=== PATIENT | female | born 1955 | race Caucasian/White ===

== ENCOUNTER 2023-10-21 10:00 | Outpatient (RCR) | payer MEDICARE, OTHER, SELFPAY | END 2023-10-21 23:59 | disposition home or self-care (01) | LOC: ROT 10:00 | PROVIDERS: ATTENDING PHYSICIAN Physical Medicine & Rehabilitation; FAMILY PHYSICIAN Family Medicine | DX: G06.1 Intraspinal abscess and granuloma (principal); R29.898 Other symptoms and signs involving the musculoskeletal system | CPT/HCPCS: 97010; 97110; 97112; 97116; 97530; 97535 ==

== ENCOUNTER → 2023-10-22 10:46 | Outpatient (REF) | payer MEDICARE, OTHER, SELFPAY ==
[2023-10-22 11:20] LABS: % Basophils 0.7 % (0-2); % Eosinophils 2.9 % (0-6); % Immature Granulocytes 0.3 % (0-0.5); % Lymphocytes 19.3 % (20.5-51.1); % Monocytes 9.7 % (1.7-9.3); % Neutrophils 67.1 % (42.2-75.2); Absolute Basophils 0.1 10^3/uL (0-0.2); Absolute Eosinophils 0.2 10^3/uL (0-0.7); Absolute Lymphocytes 1.3 10^3/uL (1.2-3.4); Absolute Monocytes 0.7 10^3/uL (0.1-0.6); Absolute Neutrophils 4.6 10^3/uL (1.4-6.5); Hematocrit 36.7 % (37.0-47.0); Hemoglobin 11.9 g/dL (12.0-16.0); Mean Corp Hgb Conc. 32.4 g/dL (33.0-37.0); Mean Corpuscular Hgb 29.1 pg (27.0-31.0); Mean Corpuscular Volume 89.7 fL (81.0-99.0); Mean Platelet Volume 9.6 fL (7.4-10.4); Nucleated Red Blood Cells % 0 %; Platelet Count 199 10^3/uL (130-400); Red Blood Cell Count 4.09 10^6/uL (4.20-5.40); White Blood Cell Count 6.8 10^3/uL (4.8-10.8)
[2023-10-22 11:46] LABS: ALT (SGPT) 35 U/L (0-35); AST (SGOT) 52 U/L (14-36); Albumin 3.7 g/dl (3.5-5.0); Alkaline Phosphatase 200 U/L (38-126); Blood Urea Nitrogen 14 mg/dl (7-17); Calcium 9.7 mg/dl (8.4-10.2); Carbon Dioxide 25 mmol/L (22-30); Chloride 103 mmol/L (98-107); Direct Bilirubin 0.7 mg/dl (0.0-0.4); Glucose 135 mg/dl (70-99); HDL Cholesterol 34 mg/dl; LDL Cholesterol, Calculated 74 mg/dl; Potassium 4.9 mmol/L (3.5-5.1); Sodium 136 mmol/L (135-145); Total Bilirubin 0.8 mg/dl (0.2-1.3); Total Cholesterol 135 mg/dl (50-199); Triglyceride 137 mg/dl (10-149); Very Low Density Lipoprotein 27 mg/dl (0-30); eGFR > 60.00
[2023-10-22 12:04] LABS: Free T3 2.79 pg/ml (2.77-5.27); Free T4 0.89 ng/dl (0.78-2.19)
[2023-10-22 12:13] LABS: Glycohemoglobin (HgbA1c) 6.3 % (4.0-5.6)
[2023-10-22 12:18] LABS: TSH 2.01 uIU/ml (0.47-4.68)
[2023-10-24 02:08] LABS: Apolipoprotein B 76 mg/dL (60-117)
== END ==
LOC: REG 10:46
PROVIDERS: ATTENDING PHYSICIAN Family Medicine; REFERRING PHYSICIAN Dermatology Dermatopathology
DX: E11.9 Type 2 diabetes mellitus without complications (principal); E03.9 Hypothyroidism, unspecified; E78.2 Mixed hyperlipidemia
CPT/HCPCS: 36415; 80048; 80061; 80076; 82172; 83036; 84439; 84443; 84481; 85025

== ENCOUNTER → 2023-10-30 07:54 | Outpatient (REF) | payer MEDICARE, OTHER, SELFPAY | LOC: DHCBC/DCA 07:54 | PROVIDERS: ATTENDING PHYSICIAN Internal Medicine Cardiovascular Disease; FAMILY PHYSICIAN Family Medicine | DX: I42.9 Cardiomyopathy, unspecified (principal); E11.69 Type 2 diabetes mellitus with other specified complication; R94.31 Abnormal electrocardiogram [ECG] [EKG] | CPT/HCPCS: 78452; 93017; A9500; J2785 ==

== ENCOUNTER → 2023-11-27 12:43 | Outpatient (REF) | payer MEDICARE, OTHER, SELFPAY ==
[2023-11-27 12:55] VITALS: BP 140/98; BP_SYST 89
[2023-11-27 14:14] LABS: Body Fluid Mononuclear 54.2 %; Body Fluid Polymorphonuclear 45.8 %; Body Fluid WBC 24 /CUMM
[2023-11-27 14:16] LABS: Body Fluid Second Tech AMA
[2023-11-27 14:43] LABS: Erythrocyte Sed Rate 93 mm/hour (0-20)
== END ==
LOC: RADI 12:43
PROVIDERS: ATTENDING PHYSICIAN Physician Assistant Surgical; FAMILY PHYSICIAN Internal Medicine; OTHER PHYSICIAN Internal Medicine Infectious Disease; OTHER PHYSICIAN Orthopaedic Surgery
DX: M25.552 Pain in left hip (principal); Z96.642 Presence of left artificial hip joint
CPT/HCPCS: 20610; 36415; 76942; 77002; 85652; 86140; 87015; 87070; 87205; 89051

== ENCOUNTER → 2023-12-11 13:27 | Outpatient (REF) | payer MEDICARE, OTHER, SELFPAY ==
[2023-12-11 13:55] VITALS: BP 134/80; BP_SYST 90
[2023-12-11 15:05] VITALS: BP 103/81
== END ==
LOC: RADI 13:27
PROVIDERS: ATTENDING PHYSICIAN Physician Assistant Surgical; FAMILY PHYSICIAN Internal Medicine
DX: M00.052 Staphylococcal arthritis, left hip (principal); B95.61 Methicillin susceptible Staphylococcus aureus infection as the cause of diseases classified elsewhere; M25.552 Pain in left hip
CPT/HCPCS: 10160; 76942; 87015; 87070; 87147; 87186; 87205

== ENCOUNTER → 2023-12-17 07:55 | Outpatient (REF) | payer MEDICARE, OTHER, SELFPAY | LOC: MRI 07:55 | PROVIDERS: ATTENDING PHYSICIAN Student in an Organized Health Care Education/Training Program; FAMILY PHYSICIAN Internal Medicine; REFERRING PHYSICIAN Orthopaedic Surgery | DX: M86.552 Other chronic hematogenous osteomyelitis, left femur (principal) | CPT/HCPCS: 72197; A9575 ==

== ENCOUNTER → 2023-12-18 12:14 | Outpatient (REF) | payer MEDICARE, OTHER, SELFPAY ==
[2023-12-18 12:41] VITALS: BP 126/91
[2023-12-18 13:45] VITALS: BP 113/85; BP_SYST 80
== END ==
LOC: RADI 12:14
PROVIDERS: ATTENDING PHYSICIAN Orthopaedic Surgery; FAMILY PHYSICIAN Family Medicine
DX: B99.9 Unspecified infectious disease (principal); M16.12 Unilateral primary osteoarthritis, left hip; Z96.642 Presence of left artificial hip joint
CPT/HCPCS: 88305; 10160; 36415; 76942; 80048; 83036; 85025; 85652; 85730; 86140; 86850; 86900; 86901; 87015; 87070; 87147; 87186; 87205; 88112

== ENCOUNTER → 2023-12-18 12:46 | Outpatient (REF) | payer MEDICARE, OTHER, SELFPAY ==
[2023-12-18 14:51] LABS: % Basophils 0.3 % (0-2); % Eosinophils 1.1 % (0-6); % Immature Granulocytes 0.3 % (0-0.5); % Lymphocytes 14.8 % (20.5-51.1); % Monocytes 5.1 % (1.7-9.3); % Neutrophils 78.4 % (42.2-75.2); Absolute Eosinophils 0.1 10^3/uL (0-0.7); Absolute Lymphocytes 1.3 10^3/uL (1.2-3.4); Absolute Monocytes 0.5 10^3/uL (0.1-0.6); Absolute Neutrophils 6.9 10^3/uL (1.4-6.5); Hematocrit 37.7 % (37.0-47.0); Mean Corp Hgb Conc. 31.8 g/dL (33.0-37.0); Mean Corpuscular Hgb 28.1 pg (27.0-31.0); Mean Corpuscular Volume 88.3 fL (81.0-99.0); Mean Platelet Volume 9.5 fL (7.4-10.4); Nucleated Red Blood Cells % 0 %; Platelet Count 209 10^3/uL (130-400); Red Blood Cell Count 4.27 10^6/uL (4.20-5.40); Red Cell Dist. Width 15.8 % (11.5-14.5); White Blood Cell Count 8.9 10^3/uL (4.8-10.8)
[2023-12-18 15:01] LABS: APTT 35.3 Sec (23.4-35.0)
[2023-12-18 15:05] LABS: Blood Urea Nitrogen 21 mg/dl (7-17); Calcium 10.2 mg/dl (8.4-10.2); Carbon Dioxide 24 mmol/L (22-30); Chloride 104 mmol/L (98-107); Glucose 117 mg/dl (70-99); Potassium 4.8 mmol/L (3.5-5.1); Sodium 137 mmol/L (135-145); eGFR > 60.00
[2023-12-18 23:11] LABS: Erythrocyte Sed Rate 104 mm/hour (0-20)
[2023-12-19 12:49] LABS: Glycohemoglobin (HgbA1c) 6.1 % (4.0-5.6)
== END ==
LOC: REG 12:46
PROVIDERS: ATTENDING PHYSICIAN Orthopaedic Surgery; FAMILY PHYSICIAN Family Medicine; REFERRING PHYSICIAN Student in an Organized Health Care Education/Training Program
DX: M16.12 Unilateral primary osteoarthritis, left hip (principal); Z96.642 Presence of left artificial hip joint; G06.2 Extradural and subdural abscess, unspecified; E11.69 Type 2 diabetes mellitus with other specified complication; A41.9 Sepsis, unspecified organism
CPT/HCPCS: 10160; 36415; 76942; 80048; 83036; 85025; 85652; 85730; 86140; 86850; 86900; 86901; 87015; 87070; 87205

== ENCOUNTER 2023-12-23 06:28 | Inpatient (IN) | payer MEDICARE, OTHER, SELFPAY ==
--- NOTE | 2023-12-18 11:56 | CM ---
Patient is scheduled for an elective L EFRAIN revision on 12/23/23. Spoke with patient prior to surgery via telephone. Introduced role of Orthopedic Navigator. Patient reports that she lives with her in a three story home. There is one step to
enter and a circular flight of steps to the second floor. There is a powder room on the data entry specialist. She currently functions independently. She has DME from having L EFRAIN done at [facility]. She has had VN services in past after back
surgeries. She had a PICC line and home IV antibiotics in past. She reports her was trained to give her the antibiotics in PICC line. PCP is Dr. Villanueva.
Patient has raised toilet seat with rails, rolling walker and 2 canes. She will see if she still has shower seat and will order new hip kit.
Discussed orthopedic program and post surgical plans. Reviewed anticipated length of stay and that goal is for her to return home at discharge. At this time patient is not sure she will have surgery but expects to be NWB and may have to stay on
data entry specialist.
She may need to have home care services. She will have support from her when she goes home.
Patient will complete online education.
Plan: Orthopedic Navigator will remain available to assist with the care of patient and will reassess discharge needs after surgery.
[2023-12-23] VITALS (12 sets, daily range): BP systolic 80–127; BP diastolic 56–80
[2023-12-23 08:57] LABS: Glucose - Point of Care 132 mg/dl (70-99)
[2023-12-23] MEDS: CELEBREX 200 MG PO (09:12)
[2023-12-23] MEDS: NORMOSOL-R 1000 IV ×2 (09:12→13:56)
[2023-12-23] MEDS: TYLENOL 650 MG PO ×2 (09:12→17:17)
[2023-12-23 09:14] LABS: INR 1.27; PT 15.9 Sec (11.4-14.6)
[2023-12-23] MEDS: VANCOCIN 200 IV (09:34)
--- NOTE | 2023-12-23 11:04 | HPS.HSE ---
Family Physician
-
Family Physician: INTERVIEWE UNKNOWN - PT NOT
Chief Complaint
-
For L hip EFRAIN revision
History of Present Illness
HPI: 67-year-old female with PMH of systolic Heart failure (EF 45%), Liver cirrhosis on imaging, Essential hypertension, Type 2 diabetes mellitus, recent septic shock with MSSA bacteremia and extensive epidural abscess involving
cervical/thoracic/lumbar spine with DKA and iatrogenic pulmonary edema from last admission 07/2023 and pt transferred to [facility] and underwent debridement with foraminotomies in cervical/thoracic spine and laminectomy in thoracic and
lumbar spine and had been on IV cefazolin through 09/18/2023; returned to for revision of L EFRAIN by Dr Hickman due to outpt hip aspiration noted positive for MSSA.
Medical History
Past Medical History
Past Medical History: Reports Other
Additional Past Medical History:
Hypothyroidism
Type 2 diabetes
Hypertension
Hyperlipidemia
Osteoarthritis
Left humerus fracture status post surgery
Obesity
recent septic shock with MSSA bacteremia and extensive epidural abscess involving cervical/thoracic/lumbar spine with DKA and iatrogenic pulmonary edema from last admission 07/2023
debridement with foraminotomies in cervical/thoracic spine and laminectomy in thoracic and lumbar spine and had been on IV cefazolin through 09/18/2023
Past Surgical History: Reports Other
Additional Past Surgical History:
Left knee replacement
Left humerus fracture surgery
debridement with foraminotomies in cervical/thoracic spine and laminectomy in thoracic and lumbar spine and had been on IV cefazolin through 09/18/2023
Social History
Tobacco: Non-smoker
Alcohol: Occasional
Drug: None
Personal:
Living: With Family
Family History
Family History: Not pertinent
Allergies / Home Medications
Allergies reflects when Allergies were last updated in [employer].
Home Medications with original date entered in [employer]
Allergy/Medication List:
Allergies
Allergy/AdvReac Type Severity Reaction Status Date / Time
No Known Allergies Allergy Unverified 12/01/12 09:20
Home Medications Table - record
Medication Instructions Recorded Confirmed
acetaminophen 325 mg tablet 325 mg PO DAILYPRN PRN mild pain 07/14/23 07/14/23
(Tylenol)
bisacodyl 5 mg tablet,delayed 5 mg PO DAILYPRN PRN constipation 07/14/23 07/14/23
release (Dulcolax (bisacodyl))
carvedilol 12.5 mg tablet 12.5 mg PO BID Heart 07/14/23 07/14/23
Disease/Condition
ibuprofen 200 mg tablet 200 mg PO Q6HPRN PRN mild pain 07/14/23 07/14/23
levothyroxine 25 mcg tablet 25 mcg PO DAILY Thyroid 07/14/23 07/14/23
meloxicam 15 mg tablet 15 mg PO DAILYPRN PRN moderate pain 07/14/23 07/14/23
methylprednisolone 4 mg tablets in 0 mg PO PER PKG DIR 07/14/23 07/14/23
a dose pack (Medrol (Abilio)) antiinflammation
ramipril 10 mg capsule 10 mg PO DAILY Blood Pressure 07/14/23 07/14/23
rosuvastatin 10 mg tablet 10 mg PO DAILY High Cholesterol 07/14/23 07/14/23
therapeutic multivitamin 1 tab PO DAILY Supplement 07/14/23 07/14/23
tramadol 50 mg tablet 50 mg PO Q6HPRN PRN moderate pain 07/14/23 07/14/23
Review of Systems
-
Constitutional: Reports No Symptoms
Physical Exam
Vital Signs
Vital Signs
Temp Pulse Resp BP Pulse Ox
36.5 C 76 16 127/79 100
12/23/23 08:56 12/23/23 08:56 12/23/23 08:56 12/23/23 08:56 12/23/23 08:56
Physical Exam
General: Well Developed, Well Nourished, No Apparent Distress, Comfortable and Conversant
HEENT: NormoCephalic, Moist mucous membranes and Atraumatic
Respiratory: Clear and Non Labored Respirations; No Accessory Resp Muscle Use
Cardiac: S1/S2 and Regular Rhythm; No Murmur or Rub
GI: Soft, Non Tender, Non Distended and Normal Bowel Sounds; No Organomegaly
Rectal: Deferred by Provider
Musculoskeletal: No Clubbing, No Cyanosis and No Edema
Skin: No Rash
Neuro: Awake
Psych: Calm and Intact Judgment/Insight
Laboratory Results
-
Laboratory Results
PT 15.9 Sec (11.4-14.6) H 12/23/23 08:52
INR 1.27 12/23/23 08:52
Data Reviewed
-
Lab Data: Labs Reviewed by me
Impression/Plan
-
HPI: 67-year-old female with PMH of systolic Heart failure (EF 45%), Liver cirrhosis on imaging, Essential hypertension, Type 2 diabetes mellitus, recent septic shock with MSSA bacteremia and extensive epidural abscess involving
cervical/thoracic/lumbar spine with DKA and iatrogenic pulmonary edema from last admission 07/2023 and pt transferred to [facility] and underwent debridement with foraminotomies in cervical/thoracic spine and laminectomy in thoracic and
lumbar spine and had been on IV cefazolin through 09/18/2023; returned to for revision of L EFRAIN by Dr Hickman due to outpt hip aspiration noted positive for MSSA.
A/P:
# L hip aspiration with MSSA, admit for revision of Left EFRAIN by Dr Hickman.
medically optimized for low/moderate risk procedure
ID CS for Abx plan
Post op care per ortho
# Recent admission for Septic shock with MSSA bacteremia with epidural abscesses of the lumbar, thoracic, cervical spine
# s/p debridement, foraminotomies in cervical/thoracic spine, and laminectomy in thoracic and lumbar spine
Pt had been on IV cefazolin through 09/18
ID CS as above
# Chronic HFrEF EF 45% (although pt declined history of CHF)
Cont [employer] aspirin, Toprol
# Type 2 diabetes
ISS
# Recent Left superficial venous thrombosis
Can check repeat US this admission
# Recent Transaminitis
# Liver cirrhosis
Check LFT
# Hypothyroidism
cont [employer] Synthroid
DVT prophylaxis�Lovenox SQ
Full code
DW at bedside
DW ortho team
DW ID
total time spent 75 min
--- NOTE | 2023-12-23 11:21 | PTCARENOTE ---
Took over for Nat KATZ. Checked on patient several times. Brought her warm blankets, offered bathroom and patient refused. Then patient rang and said she had to urinate. Patient requested bedpan. Patient seems upset while waiting to go to the OR. Or
team in shortly after patient tried to void on the bedpan. Will monitor patient.
--- NOTE | 2023-12-23 13:09 | W.PN.UPDATE ---
Update Note
Progress Note Update
Infection of L TH prosthesis s/p Revision of L EFRAIN w/ Dr Hickman 12/23/23
- s/p L EFRAIN, 05/2022, by Dr Hickman
- L greater trochanter/hip aspiration 12/18/23 + MSSA. Has a previous h/o MSSA bacteremia in 06/2023 2* multiple epidural abscesses. Completed IV Cefazolin 08/2023 per ID recs
- Will consult ID for further abx recs. Likely to be on 6 weeks of IV abx followed by 9 months of PO abx. Was started on Keflex and Doxycycline pre-op.
- Per surgeon, pt will be PWB as tolerated w/ rolling walker. Orders in for PT and OT.
- Would prefer ASA 325 mg PO daily x4 weeks for DVT prevention. Can be changed if needed pending result of UE U/S
- Pain management w/ Tylenol, Meloxicam, and Oxycodone for mod-severe post-op pain. May adjust meds if indicated. Prefer no steroids d/t current infection.
- Dressing to remain on for 1 week post-surgery.
- Will transfer to the hospitalist service d/t complicated medical hx (previous pulmonary edema, septic shock, bacteremia, and DKA admission in 06/2023). Appreciate their help.
- Orthopedic f/u typically 4-6 weeks post-surgery
[2023-12-23 13:35] LABS: Glucose - Point of Care 146 mg/dl (70-99)
[2023-12-23] MEDS: SUBLIMAZE 25 MCG IV ×2 (13:59→14:22)
--- NOTE | 2023-12-23 14:10 | SUR.PHASEI ---
BP trending down, Dr Vickie gibbons. Amira Yeung RN BSN.
[2023-12-23] MEDS: ROXICODONE 5 MG PO (14:25)
--- NOTE | 2023-12-23 14:38 | CON.ID ---
Consultation
-
Date/Time Consultation Requested: 12/23/23 13:18
Date/Time Consultation Performed: 12/23/23 15:33
Requesting Provider: Dr Hickman
Performing Provider: Dr Miller
Reason for Consultation: PJI
Chief Complaint / Past History
Chief Complaint
For L hip EFRAIN revision
History of Present Illness
Ms Myers is a 68 year old female with history of compensated cirrhosis, prolonged MSSA bacteremia due to Extensive Epidural Abscesses of the lumbar, thoracic and cervical spine ultimately undergoing debridement with foraminotomies in
cervical/thoracic spine and laminectomy in thoracic and lumbar spine at [facility] in 06/2024, she completed a course of IV cefazolin and did well until around September when she developed a nagging groin pain and was found to have an infected hematoma
adjacent to her L PJI. She has not had fevers, chills or malaise at home. She underwent a second joint aspiration and aspiration of the L hip collection last week. The lab reports only receiving fluid marked bursal collection - they did not
receive a smaple marked as being from the hip. The bursal collection grew MSSA. She was started on doxycycline and keflex by me. She was admitted today for elective 1 stage replacement. I normaer texted with Dr Hickman who noted puss was in the
joint space. Vanc and 12 grams of tobramycin were mixed into the bone cement. ID is consulted for assistance with management.
Past History
Additional Past Medical History:
Hypothyroidism
Type 2 diabetes
Hypertension
Hyperlipidemia
Osteoarthritis
Left humerus fracture status post surgery
Obesity
recent septic shock with MSSA bacteremia and extensive epidural abscess involving cervical/thoracic/lumbar spine with DKA and iatrogenic pulmonary edema from last admission 07/2023
debridement with foraminotomies in cervical/thoracic spine and laminectomy in thoracic and lumbar spine and had been on IV cefazolin through 09/18/2023
Additional Past Surgical History:
Left knee replacement
Left humerus fracture surgery
debridement with foraminotomies in cervical/thoracic spine and laminectomy in thoracic and lumbar spine and had been on IV cefazolin through 09/18/2023
Allergy History:
No Known Allergies Allergy (Verified 12/23/23 08:46)
Social History
Tobacco: Non-Smoker
Alcohol: Occasional (fomer daily use)
Drug: None
Family History
Family History: Not Pertinent
Review of Systems
Review of Systems
General: Negative Fever or Chills
All systems: All other systems were reviewed and were negative
Vital Signs
Temp Pulse Resp BP Pulse Ox
98.1 F 76 0 86/61 98
12/23/23 13:20 12/23/23 14:15 12/23/23 14:15 12/23/23 14:15 12/23/23 14:15
Physical Exam
Physical Exam
Constitutional: No Acute Distress
Cardiovascular: Regular Rate and S1/S2; Negative Murmur or Rub
Pulmonary: Clear and Symmetric; Negative Wheezes, Rales or Rhonchi
Gastrointestinal: Soft, Non Tender, Non Distended and Normal Bowel Sounds
Skin: Warm and Dry; Negative Rash or Jaundice
Wound: Other (dressing clean, dry, intact)
Lab / Diagnostic Study Results
PT 15.9 Sec (11.4-14.6) H 12/23/23 08:52
INR 1.27 12/23/23 08:52
Microbiology Results
Micro:
12/23/23 13:22 Tissue Culture - Pending
Tissue Gram Stain - Pending
12/23/23 13:22 Tissue Culture - Pending
Tissue Gram Stain - Pending
12/23/23 13:22 Tissue Culture - Pending
Tissue Gram Stain - Pending
Assessment / Plan
MSSA PJI and Abscess
- will follow up formal OR note
- continue cefazolin 2 gm IV q8 hrs
- picc line can be consider about 24 hours post op if not febrile
- tobramycin and vancomycin levels in the AM
- is on post operative fluids currently at 70 ccs/hr, follow renal function closely, may well consider recommending to continue tomorrow
- avoid nsaids for at least the next 72 hours - stopped mobic
- follow renal function closely
Cirrhosis - compensated
- outpatient follow up with GI
- abstinence from EtoH
Care Review
Plan reviewed with: Physician (Dr Hickman, Dr Adams - risk of parker)
--- NOTE | 2023-12-23 15:17 | PTCARENOTE ---
Pt arrived to [facility] from PACU s/p L Hip revision. Pt L hip aquacel C/D/I, NV intact, on 2L NC satting 100%, IVF infusing. Pt states 7/10 pain, was given 5mg Roxicodone before arriving. Will assess pain in 1 hour. Pt states no other pain or
complaints at this time. Pt oriented to call quiroz and room, bed locked and in lowest position, call quiroz within reach.
[2023-12-23 16:57] LABS: Glucose - Point of Care 198 mg/dl (70-99)
[2023-12-23] MEDS: PROZAC 10 MG PO (17:17)
[2023-12-23] MEDS: ANCEF 10 IV ×2 (17:17→23:05)
[2023-12-23] MEDS: ASPIRIN 325 MG PO (17:17)
[2023-12-23] MEDS: SYNTHROID PO (17:19)
[2023-12-23] MEDS: ROXICODONE 10 MG PO ×2 (17:27→21:37)
[2023-12-23] MEDS: NOVOLOG FLEXPEN-LOW RESISTANCE 1 UNITS SC (17:46)
[2023-12-23] MEDS: COLACE 100 MG PO (20:51)
[2023-12-23] MEDS: SENOKOT 17.1999999999999993 MG PO (20:51)
[2023-12-23] MEDS: BACTROBAN 2% OINTMENT 1 APPLIC NASAL (20:52)
--- NOTE | 2023-12-23 21:00 | PTCARENOTE ---
pt's left foot noted to be internally rotated, provided pt with abductor pillow and pt educated on need for use for proper alignment of hip. Pt verbalized understanding, though, was not happy to have abductor pillow in place. Assessment ongoing.
[2023-12-23 21:29] LABS: Glucose - Point of Care 205 mg/dl (70-99)
[2023-12-23] MEDS: CRESTOR 10 MG PO (21:37)
[2023-12-24] VITALS (7 sets, daily range): BP systolic 95–137; BP diastolic 68–84; PULSE 61–89; O2SAT 100
[2023-12-24] MEDS: ROXICODONE 10 MG PO ×2 (02:29→21:06)
[2023-12-24] MEDS: TYLENOL 650 MG PO (02:29)
[2023-12-24 06:37] LABS: % Basophils 0.2 % (0-2); % Eosinophils 0.3 % (0-6); % Immature Granulocytes 0.3 % (0-0.5); % Lymphocytes 16.3 % (20.5-51.1); % Monocytes 8.8 % (1.7-9.3); % Neutrophils 74.1 % (42.2-75.2); Absolute Lymphocytes 1.4 10^3/uL (1.2-3.4); Absolute Monocytes 0.8 10^3/uL (0.1-0.6); Absolute Neutrophils 6.4 10^3/uL (1.4-6.5); Hematocrit 26.7 % (37.0-47.0); Hemoglobin 8.6 g/dL (12.0-16.0); Mean Corp Hgb Conc. 32.2 g/dL (33.0-37.0); Mean Corpuscular Hgb 27.9 pg (27.0-31.0); Mean Corpuscular Volume 86.7 fL (81.0-99.0); Mean Platelet Volume 9.7 fL (7.4-10.4); Nucleated Red Blood Cells % 0 %; Platelet Count 145 10^3/uL (130-400); Red Blood Cell Count 3.08 10^6/uL (4.20-5.40); Red Cell Dist. Width 15.9 % (11.5-14.5); White Blood Cell Count 8.6 10^3/uL (4.8-10.8)
[2023-12-24 07:12] LABS: ALT (SGPT) 24 U/L (0-35); AST (SGOT) 41 U/L (14-36); Albumin 3.1 g/dl (3.5-5.0); Alkaline Phosphatase 114 U/L (38-126); Blood Urea Nitrogen 23 mg/dl (7-17); Carbon Dioxide 24 mmol/L (22-30); Chloride 103 mmol/L (98-107); Direct Bilirubin 0.3 mg/dl (0.0-0.4); Estimated Creatinine Clearance 52 ml/min; Glucose 123 mg/dl (70-99); Potassium 4.7 mmol/L (3.5-5.1); Sodium 136 mmol/L (135-145); Total Bilirubin 0.3 mg/dl (0.2-1.3); Total Protein 7.2 g/dl (6.3-8.2); eGFR > 60.00
[2023-12-24 08:05] LABS: Glucose - Point of Care 97 mg/dl (70-99)
--- NOTE | 2023-12-24 08:15 | W.PN.ORTHO ---
Today's Communication / Plan
-
PT/OT
Aspirin DVT prophylactics
Partial weightbearing left lower extremity
DC abductor pillow
Ancef/vancomycin
ID recommendations for antibiotics
Discharge to home or longterm facility
Follow-up Dr. Hickman 2 weeks postop
Assessment
.
Distal Motor Intact: Yes
Dressing:
Clean, dry and intact.
Plan
.
Surgery / Date: Explant/single-stage revision L EFRAIN 12/22 Vick
DVT Prophylaxis: Aspirin
Activity:
Out of bed.
PT/OT
Subjective
.
.:
Patient resting comfortably.
Vital Signs and Labs
.
Vital Signs and Labs:
Lab Results
12/24/23 05:36
12/24/23 05:36
Temp Pulse Resp BP Pulse Ox
98.5 F 78 19 97/68 99
12/24/23 07:59 12/24/23 07:59 12/24/23 07:59 12/24/23 07:59 12/24/23 07:59
PT 15.9 Sec (11.4-14.6) H 12/23/23 08:52
INR 1.27 12/23/23 08:52
[2023-12-24] MEDS: NOVOLOG FLEXPEN-LOW RESISTANCE SC ×3 (08:38→16:52)
[2023-12-24] MEDS: BACTROBAN 2% OINTMENT 1 APPLIC NASAL ×2 (08:48→21:00)
[2023-12-24] MEDS: PROZAC 10 MG PO (08:48)
[2023-12-24] MEDS: TOPROL XL PO ×2 (08:48→09:40)
[2023-12-24] MEDS: ASPIRIN 325 MG PO (08:48)
[2023-12-24] MEDS: ROXICODONE 5 MG PO ×2 (08:48→15:26)
[2023-12-24] MEDS: ANCEF 10 IV ×3 (08:48→23:08)
[2023-12-24] MEDS: COLACE 100 MG PO ×2 (08:48→21:01)
[2023-12-24] MEDS: SYNTHROID 25 MCG PO (08:48)
[2023-12-24] MEDS: SENOKOT 17.1999999999999993 MG PO ×2 (08:48→21:01)
--- NOTE | 2023-12-24 09:03 | W.PN.HOSP.TC ---
Today's Communication/Plan
-
see A/P
Assessment / Plan
Assessment / Plan
HPI: 67-year-old female with PMH of systolic Heart failure (EF 45%), Liver cirrhosis on imaging, Essential hypertension, Type 2 diabetes mellitus, recent septic shock with MSSA bacteremia and extensive epidural abscess involving
cervical/thoracic/lumbar spine with DKA and iatrogenic pulmonary edema from last admission 07/2023 and pt transferred to [facility] and underwent debridement with foraminotomies in cervical/thoracic spine and laminectomy in thoracic and
lumbar spine and had been on IV cefazolin through 09/18/2023; returned to for revision of L EFRAIN by Dr Hickman due to outpt hip aspiration 12/18/2023 noted positive for MSSA.
A/P:
# L hip bursa aspiration with MSSA
s/p revision of Left EFRAIN by Dr Hickman 12/23/2023
Aspirin for DVT prophylaxis per ortho
Per ortho, Ok for partial weightbearing left lower extremity, Follow-up Dr. Hickman 2 weeks postop
Follow tissue culture from OR
s/p vancomycin, cont Ancef per ID, to consider PICC placement in 24 hours post op if not febrile
PT OT eval for discharge planning, likely to SNF
pt is leaning toward [facility] on board to facilitate
# Acute blood loss/ post of anemia
Hgb today at 8.6, was at 12.0 [employer]
Cont to monitor Hgb
# Recent admission 07/2023 for Septic shock with MSSA bacteremia, with epidural abscesses of the lumbar, thoracic, cervical spine
# s/p debridement, foraminotomies in cervical/thoracic spine, and laminectomy in thoracic and lumbar spine
Pt had been on IV cefazolin at that time through 09/18
# Chronic HFrEF EF 45% (although pt declined history of CHF)
Cont [employer] aspirin, Toprol (with holding parameter)
# Type 2 diabetes
ISS
# Recent Right upper extremity superficial venous thrombosis
repeat US this admission neg for clot
# Recent Transaminitis
# Liver cirrhosis, stable/compensated
LFT improved from prior
# Hypothyroidism
cont [employer] Synthroid
DVT prophylaxis�Lovenox SQ
Full code
DW RN
Anticipated Discharge: > 48 hours
Subjective/Interval History
-
Date of Service: December 24, 2023
Objective Data
-
Labs:
Laboratory Results
12/24/23
05:36
WBC 8.6
Hgb 8.6 L D
Hct 26.7 L
Plt Count 145 D
Sodium 136
Potassium 4.7
Chloride 103
Carbon Dioxide 24
BUN 23 H
Creatinine 1.0
Glucose 123 H
Calcium 9.0
Total Bilirubin 0.3
AST 41 H
ALT 24
Alkaline Phosphatase 114
Vital Signs:
Vital Signs
Temp Pulse Resp BP Pulse Ox
36.9 C 78 19 97/68 99
12/24/23 07:59 12/24/23 07:59 12/24/23 07:59 12/24/23 07:59 12/24/23 07:59
I&O
12/23/23 12/24/23 12/25/23
06:59 06:59 06:59
Intake Total 1589 / 1589
Balance 1589 / 1589
Review of Systems
-
All other systems: Reviewed and negative
Physical Exam
-
General: Well Developed, Well Nourished, No Apparent Distress, Comfortable and Conversant
HEENT: Normocephalic and Atraumatic; Negative Oxygen
Respiratory: Clear to Auscultation and Non Labored Respirations; Negative Accessory Resp Muscle Use
Cardiac: Regular Rhythm and S1/S2; Negative Murmur or Rub
GI: Soft, Nontender and Nondistended
Neuro: Awake, Alert and Oriented
Psych: Calm and Intact Judgement/Insight
Data Reviewed
-
Labs: Labs Reviewed by me
--- NOTE | 2023-12-24 09:38 | CM ---
Addendum entered by Belle Blair 12/24/23 13:32:
Met with patient and at bedside. Both are hoping that patient can be discharged as soon as possible. Explained steps that need to occur prior to discharge and that a referral has been made to [facility]. They understand that patient needs
the PICC and antibiotic needs to be finalized before home infusion services can be completed put in place.
Referral was sent to [facility] through [facility].
Addendum entered by Belle Blair 12/24/23 11:01:
[place] text received from Kj at [facility]. She states that they are unable to accept patient. Patient and attending updated.
Original Note:
Reviewed chart and held rounds with PT, OT, attending and nursing. Patient admitted for L TH Revision due to PJI. Met with patient at bedside. Confirmed information previously obtained for assessment. Also discussed discharge plans. Patient states
that she would like to go to [facility] if possible. She has been there in the past and had a really good experience. Reviewed acute rehab criteria and explained that she may not qualify. She states that she can private pay if needed. If she doesn't
qualify for [facility], she states that she will return home at discharge. Her will be home and can assist if needed. Discussed likely need for home infusion services and VN services and reviewed options. She selects [facility] and [facility].
Patient has all needed DME at home.
Call placed to Lacie at [facility]. Discussed case and faxed face sheet, H&P and ID consult. Will fax PICC information and ID antibiotic sheet when available.
Call placed to Kj at [facility]. Discussed case. She is unsure if will be able to accept patient; she will discuss with administration and follow up with navigator.
[2023-12-24] MEDS: TYLENOL PO ×2 (11:29→17:43)
[2023-12-24 11:57] LABS: Glucose - Point of Care 123 mg/dl (70-99)
[2023-12-24 16:44] LABS: Glucose - Point of Care 135 mg/dl (70-99)
--- NOTE | 2023-12-24 17:10 | W.PN.ID1 ---
Date of Service
Date of Service: December 24, 2023
Today's Communication
- if renal function stable and afebrile, may consider discharge tomorrow
Assessment / Plan
MSSA PJI and Abscess
- continue cefazolin 2 gm IV q8 hrs x6 weeks; script on chart
- picc line
- avoid nsaids for at least the next 72 hours - stopped mobic
- follow renal function closely - could see delayed increase at up to 1 week post administration
- encouraged her to keep up with oral hydration
- if renal function stable and afebrile, may consider discharge tomorrow
Cirrhosis - compensated
- outpatient follow up with GI
- abstinence from EtoH
Chief Complaint
-: Other (pji)
Subjective / Review of Systems
afebrile
bp stable
without leukocytosis
cr stable
OR culture now with s aureus
Vital Signs / Physical Exam
Vital Signs
Vital Signs
Temp Pulse Resp BP Pulse Ox
98.4 F 67 18 122/81 99
12/24/23 15:26 12/24/23 15:26 12/24/23 15:26 12/24/23 15:26 12/24/23 15:26
Physical Exam
Constitutional: No Acute Distress
Cardiovascular: Regular Rate and S1/S2; Negative Murmur or Rub
Pulmonary: Clear and Symmetric; Negative Wheezes or Rales
Gastrointestinal: Soft, Non Tender, Non Distended and Normal Bowel Sounds
Skin: Warm and Dry; Negative Rash or Jaundice
Objective Data
Lab Data
Lab Results
12/24/23 05:36
12/24/23 05:36
PT 15.9 Sec (11.4-14.6) H 12/23/23 08:52
INR 1.27 12/23/23 08:52
Estimated Creat Clear 52 ml/min 12/24/23 05:36
Total Bilirubin 0.3 mg/dl (0.2-1.3) 12/24/23 05:36
AST 41 U/L (14-36) H 12/24/23 05:36
ALT 24 U/L (0-35) 12/24/23 05:36
Alkaline Phosphatase 114 U/L (38-126) 12/24/23 05:36
Most recent labs reviewed.
Micro Results:
12/23/23 13:22 Tissue Culture - Preliminary
Tissue Staphylococcus aureus
Gram Stain - Preliminary
12/23/23 13:22 Tissue Culture - Pending
Tissue Gram Stain - Final
12/23/23 13:22 Tissue Culture - Pending
Tissue Gram Stain - Final
[2023-12-24] MEDS: CRESTOR 10 MG PO (21:02)
[2023-12-24 21:48] LABS: Glucose - Point of Care 178 mg/dl (70-99)
[2023-12-25] MEDS: TYLENOL 650 MG PO ×2 (03:00→09:07)
[2023-12-25 04:44] LABS: % Basophils 0.5 % (0-2); % Eosinophils 3.4 % (0-6); % Immature Granulocytes 0.5 % (0-0.5); % Lymphocytes 17.8 % (20.5-51.1); % Monocytes 9.8 % (1.7-9.3); Absolute Eosinophils 0.2 10^3/uL (0-0.7); Absolute Monocytes 0.6 10^3/uL (0.1-0.6); Absolute Neutrophils 3.8 10^3/uL (1.4-6.5); Hematocrit 24.5 % (37.0-47.0); Mean Corp Hgb Conc. 32.7 g/dL (33.0-37.0); Mean Corpuscular Hgb 28.3 pg (27.0-31.0); Mean Corpuscular Volume 86.6 fL (81.0-99.0); Mean Platelet Volume 9.6 fL (7.4-10.4); Nucleated Red Blood Cells % 0 %; Platelet Count 109 10^3/uL (130-400); Red Blood Cell Count 2.83 10^6/uL (4.20-5.40); Red Cell Dist. Width 16.2 % (11.5-14.5); White Blood Cell Count 5.6 10^3/uL (4.8-10.8)
[2023-12-25 05:11] LABS: ALT (SGPT) 19 U/L (0-35); AST (SGOT) 47 U/L (14-36); Alkaline Phosphatase 120 U/L (38-126); Blood Urea Nitrogen 21 mg/dl (7-17); Calcium 8.7 mg/dl (8.4-10.2); Carbon Dioxide 25 mmol/L (22-30); Chloride 108 mmol/L (98-107); Direct Bilirubin 0.2 mg/dl (0.0-0.4); Estimated Creatinine Clearance 58 ml/min; Glucose 118 mg/dl (70-99); Potassium 4.2 mmol/L (3.5-5.1); Sodium 137 mmol/L (135-145); Total Bilirubin 0.2 mg/dl (0.2-1.3); eGFR > 60.00
[2023-12-25 06:00] VITALS: BMI 23.4
[2023-12-25 07:28] LABS: Glucose - Point of Care 117 mg/dl (70-99)
[2023-12-25 07:45] VITALS: BP 142/82
--- NOTE | 2023-12-25 08:21 | W.PN.HOSP.TC ---
Addendum entered and electronically signed by Earlene Adams MD 12/25/23 16:34:
# Chronic Systolic CHF (no change in documentation)
Based on last echocardiogram available from 07/15/23, patient's left ventricular ejection fraction was at 45-50%.
Addendum entered and electronically signed by Earlene Adams MD 12/25/23 15:57:
total DC time 35 min
Original Note:
Today's Communication/Plan
-
see A/P
Discharge with HH after PICC today
Assessment / Plan
Assessment / Plan
HPI: 67-year-old female with PMH of systolic Heart failure (EF 45%), Liver cirrhosis on imaging, Essential hypertension, Type 2 diabetes mellitus, recent septic shock with MSSA bacteremia and extensive epidural abscess involving
cervical/thoracic/lumbar spine with DKA and iatrogenic pulmonary edema from last admission 07/2023 and pt transferred to [facility] and underwent debridement with foraminotomies in cervical/thoracic spine and laminectomy in thoracic and
lumbar spine and had been on IV cefazolin through 09/18/2023; returned to for revision of L EFRAIN by Dr Hickman due to outpt hip aspiration 12/18/2023 noted positive for MSSA.
A/P:
# L hip bursa aspiration with MSSA
s/p revision of Left EFRAIN by Dr Hickman 12/23/2023
Aspirin for DVT prophylaxis per ortho
Per ortho, Ok for partial weightbearing left lower extremity, Follow-up Dr. Hickman 2 weeks postop
Follow tissue culture from OR, can be done outpt
s/p vancomycin, cont Ancef 2 gm IV q8 hrs x6 weeks per ID, place PICC prior to DC
PT OT recc HH
# Acute blood loss/ post of anemia
Hgb today at 8.0, was at 12.0 FISHER REEF NET
Cont to monitor Hgb outpt
# Recent admission 07/2023 for Septic shock with MSSA bacteremia, with epidural abscesses of the lumbar, thoracic, cervical spine
# s/p debridement, foraminotomies in cervical/thoracic spine, and laminectomy in thoracic and lumbar spine
Pt had been on IV cefazolin at that time through 09/18
# Chronic HFrEF EF 45% (although pt declined history of CHF)
Cont FISHER REEF NET aspirin, Toprol (with holding parameter)
# Type 2 diabetes
ISS
# Recent Right upper extremity superficial venous thrombosis
repeat US this admission neg for clot
# Recent Transaminitis
# Liver cirrhosis, stable/compensated
LFT improved from prior
# Hypothyroidism
cont FISHER REEF NET Synthroid
DVT prophylaxis�Lovenox SQ
Full code
DW CM
Anticipated Discharge: Today
Subjective/Interval History
-
Date of Service: December 25, 2023
Objective Data
-
Labs:
Laboratory Results
12/25/23
04:19
WBC 5.6
Hgb 8.0 L
Hct 24.5 L
Plt Count 109 L D
Sodium 137
Potassium 4.2
Chloride 108 H
Carbon Dioxide 25
BUN 21 H
Creatinine 0.9
Glucose 118 H
Calcium 8.7
Total Bilirubin 0.2
AST 47 H
ALT 19
Alkaline Phosphatase 120
Vital Signs:
Vital Signs
Temp Pulse Resp BP Pulse Ox
36.9 C 75 17 137/74 98
12/24/23 23:05 12/24/23 23:05 12/24/23 23:05 12/24/23 23:05 12/24/23 23:05
I&O
12/24/23 12/25/23 12/26/23
06:59 06:59 06:59
Intake Total 1589 / 1589 1819
Balance 1589 / 1589 1819
Review of Systems
-
All other systems: Reviewed and negative
Physical Exam
-
General: Well Developed, Well Nourished, No Apparent Distress, Comfortable and Conversant
HEENT: Normocephalic and Atraumatic; Negative Oxygen
Respiratory: Clear to Auscultation and Non Labored Respirations; Negative Accessory Resp Muscle Use
Cardiac: Regular Rhythm and S1/S2; Negative Murmur or Rub
GI: Soft, Nontender and Nondistended
Neuro: Awake, Alert and Oriented
Psych: Calm and Intact Judgement/Insight
Data Reviewed
-
Labs: Labs Reviewed by me
--- NOTE | 2023-12-25 08:52 | W.PN.ORTHO ---
Today's Communication / Plan
-
POD #2 s/p left hip explant and revision LTHA
PT/OT
Aspirin DVT prophylaxis
Partial weightbearing left lower extremity
IV abx per ID recommendations for staph aureus
Discharge to home or alf facility when medically stable.
PICC line to be placed and IV abx to be set up prior to discharge
Follow-up Dr. Hickman 2 weeks postop
Assessment
.
Distal Motor Intact: Yes
Dressing:
Clean, dry and intact.
Assessment:
POD #2 s/p left hip explant and revision LTHA
PT/OT
Aspirin DVT prophylaxis
Partial weightbearing left lower extremity
IV abx per ID recommendations for staph aureus
Discharge to home or alf facility when medically stable.
PICC line to be placed and IV abx to be set up prior to discharge
Follow-up Dr. Hickman 2 weeks postop
Plan
.
Surgery / Date: Explant/single-stage revision L EFRAIN 12/22 [facility]
DVT Prophylaxis: Aspirin
Activity:
Out of bed.
PT/OT
Subjective
.
.:
Patient resting comfortably.
Vital Signs and Labs
.
Vital Signs and Labs:
Lab Results
12/25/23 04:19
12/25/23 04:19
Temp Pulse Resp BP Pulse Ox
97.6 F 82 16 142/82 98
12/25/23 07:45 12/25/23 07:45 12/25/23 07:45 12/25/23 07:45 12/25/23 07:45
PT 15.9 Sec (11.4-14.6) H 12/23/23 08:52
INR 1.27 12/23/23 08:52
Physical Exam
-
Left hip: Dressing is c/d/i with mild drainage proximally. ROM without pain. N/v intact distally.
--- NOTE | 2023-12-25 09:01 | CM ---
Addendum entered by Belle Blair 12/25/23 12:16:
Spoke with Mehnaz at [facility]. She confirmed that they are set to see patient at home tomorrow. Also spoke with Lacie at [facility]. She is on her way to see patient and states that everything is in place for patient to go home today.
Addendum entered by Belle Blair 12/25/23 12:02:
PICC info and chest xray faxed to [facility] and [facility]. Will await follow up from both that everything is in place for aptient to go home today.
Original Note:
Reviewed chart and discussed with Attending and nursing. Patient is cleared for discharge today. Met with patient at bedside and spoke with her via telephone. Reviewed discharge plans. Patient be will returning home. Her will be home
and can assist if needed. Reviewed home infusion services and VN services. She continues to select [facility] and [facility].
Patient has all needed DME at home.
Spoke with Mehnaz at [facility]. She confirms their ability to accept referral and will coordinate with Lacie at [facility]. lost and found clerk to fax to [facility] at [phone]
ID sheet faxed to [facility] and [facility]. Will fax PICC info when available.
Spoke with Lacie at [facility]. Discussed case. She states that she will come in today to do a refresh teaching session with patient and that supplies and med can be delivered in time for this evenings dose. She is in contact with [facility] to be sure
they can see patient tomorrow.
[2023-12-25] MEDS: NOVOLOG FLEXPEN-LOW RESISTANCE SC ×2 (09:06→12:51)
[2023-12-25] MEDS: ASPIRIN 325 MG PO (09:07)
[2023-12-25] MEDS: SYNTHROID 25 MCG PO ×2 (09:07→15:42)
[2023-12-25] MEDS: TOPROL XL 25 MG PO (09:07)
[2023-12-25] MEDS: COLACE 100 MG PO (09:08)
[2023-12-25] MEDS: SENOKOT 17.1999999999999993 MG PO (09:08)
[2023-12-25] MEDS: PROZAC 10 MG PO (09:08)
[2023-12-25] MEDS: ANCEF 10 IV ×2 (09:09→15:18)
[2023-12-25] MEDS: ROXICODONE 5 MG PO ×2 (09:12→14:49)
[2023-12-25] MEDS: FLUSH (NSS) 1 FLUSH IV (09:13)
[2023-12-25 10:44] LABS: Erythrocyte Sed Rate 81 mm/hour (0-20)
[2023-12-25 11:32] VITALS: BP 136/83
[2023-12-25 12:11] LABS: Glucose - Point of Care 137 mg/dl (70-99)
--- NOTE | 2023-12-25 13:00 | PN.CDI ---
CDI
- -
CDI:
Physician Documentation Request
Admit Date: 12/23/23 06:28
Dear Doctor Angie,
Please review the following and provide your response in the progress notes.
Clinical Indicators:
Pt admitted for left hip revision due to periprosthetic infection /MSSA
Documented throughout the record, 'Chronic HFrEF EF 45% (although pt declined history of CHF)Cont LICENSED PROSTHETIST aspirin, Toprol (with holding parameter)...'
Cardiology pre-op clearance scanned document from 12/18/23 cardiology office visit, ' Heart failure with improved ejection fraction ( HFIMPEF)... Heart falure with improved ejection fraction and resolved cardiomyopathy..'
Please provide further specificity regarding the most likely type of CHF you are evaluating, treating or monitoring.
Chronic Diastolic CHF
Chronic Systolic CHF ( no change in documentation)
Other
Use of terms such as suspected, likely, concern for, or probable (associated with a specific diagnosis that is being evaluated, monitored, or treated as if it exists) are acceptable and can be coded in the inpatient setting, when documented at the
time of discharge.
Thank you,
Radha Jerry RN
CDI Specialist
[place] [facility]
Please use your independent medical judgment in providing your response.
--- NOTE | 2023-12-25 13:21 | W.PN.ID1 ---
Date of Service
Date of Service: December 25, 2023
Today's Communication
- continue cefazolin 2 gm IV q8 hrs x6 weeks; script on chart
- picc line
- encouraged her to keep up with oral hydration
- weekly labs will be sent to my office
- follow up with me in several weeks
Assessment / Plan
MSSA PJI and Abscess
- continue cefazolin 2 gm IV q8 hrs x6 weeks; script on chart
- picc line
- encouraged her to keep up with oral hydration
- weekly labs will be sent to my office
- follow up with me in several weeks
Cirrhosis - compensated
- outpatient follow up with GI
- abstinence from EtoH
Chief Complaint
-: Other (pji)
Subjective / Review of Systems
afebrile
bp stable
no leukocytosis and cr stable
OR culture MSSA as expected
Vital Signs / Physical Exam
Vital Signs
Vital Signs
Temp Pulse Resp BP Pulse Ox
98.4 F 85 16 136/83 100
12/25/23 11:32 12/25/23 11:32 12/25/23 11:32 12/25/23 11:32 12/25/23 11:32
Physical Exam
Constitutional: No Acute Distress
Cardiovascular: Regular Rate
Pulmonary: Symmetric
Neurological: Awake
Objective Data
Lab Data
Lab Results
12/25/23 04:19
12/25/23 04:19
ESR 81 mm/hour (0-20) H 12/25/23 04:19
PT 15.9 Sec (11.4-14.6) H 12/23/23 08:52
INR 1.27 12/23/23 08:52
Estimated Creat Clear 58 ml/min 12/25/23 04:19
Total Bilirubin 0.2 mg/dl (0.2-1.3) 12/25/23 04:19
AST 47 U/L (14-36) H 12/25/23 04:19
ALT 19 U/L (0-35) 12/25/23 04:19
Alkaline Phosphatase 120 U/L (38-126) 12/25/23 04:19
C-Reactive Protein 25.30 mg/L (0.0-10.00) H 12/25/23 04:19
Most recent labs reviewed.
Micro Results:
12/23/23 13:22 Tissue Culture - Preliminary
Tissue No Growth After 18-24 Hours
Gram Stain - Final
12/23/23 13:22 Tissue Culture - Preliminary
Tissue No Growth After 18-24 Hours
Gram Stain - Final
12/23/23 13:22 Tissue Culture - Final
Tissue S aureus-Methicillin Sensitive
Gram Stain - Final
Care Review
Plan reviewed with: Physician (Dr Angie freeman)
--- NOTE | 2023-12-25 14:09 | W.DCSUMMARY ---
Discharge Summary
Discharge Data
Date of Admission: 12/23/23
Date of Discharge: 12/25/23
-
Pending Results: No
Hospital Course
Principal Diagnosis:
Left hip bursa aspiration with Meticillin-Sensitive Staphylococcus (MSSA)
Chronic Diagnoses:�
Recent admission 07/2023 for Septic shock with MSSA bacteremia, with epidural abscesses of the lumbar, thoracic, cervical spine
status post debridement, foraminotomies in cervical/thoracic spine, and laminectomy in thoracic and lumbar spine
Chronic heart failure with reduced ejection fraction 45% (although patient declined history of hearty failure)
Type 2 diabetes
Liver cirrhosis, stable/compensated
Hypothyroidism, on Synthroid
Consultations:�
Infectious disease
Orthopedic
Procedures:�
Left hip revision, entire femoral component and entire acetabular component implanted with high-dose antibiotic bone cement.
Clinical course:�
This is a 67-year-old female with past medical history as stated above, who underwent left hip bursa aspiration outpatient that grew MSSA, and was informed by the orthopedic to come to the hospital for revision of left hip replacement.
Problem 1:
L hip bursa aspiration with MSSA.
She underwent revision of Left EFRAIN by Dr Hickman 12/23/2023.
She can continue with full dose aspirin for 4 weeks for DVT prophylaxis per ortho, and following that resume her prior to admission baby aspirin.
She can partially weight-bear on the left lower extremity.
She received IV Ancef while in the hospital and was discharged with Ancef 2 gm IV q8 hrs for 6 weeks per ID (via PICC with home infusion).
Of note, her hemoglobin dropped from 12 to 8.0 on the day of discharge. She can continue to monitor her hemoglobin with her PCP following discharge.
As for the rest of her medical problems, they were stable during her hospital stay.
Discharge Plan
-
Patient Disposition: Home with Home Care
Discharge Diagnosis/Procedures: Left hip bursa aspiration with MSSA status post revision of Left total hip replacement by Dr Hickman 12/23/2023; history of septic shock with MSSA bacteremia with epidural abscesses of the cervical/thoracic/lumbar spine
Condition: Good
Diet: As tolerated
Activity: As tolerated
Driving Restrictions: Not until seen by your Dr
Blood Work: CBC in 1 week, result to PCP
Stand Alone Forms: Total Hip/Knee Replacement D/C
Referrals:
[facility] [Outside] - in one to two days (Physical therapy and nursing)
[facility] [Outside]
Berta Perez MD [Active] - in less than 1 week
Jesus Hickman MD [Active] - in two weeks (Call office to schedule appointment)
Additional Discharge Medication Instructions: Continue full dose aspirin for 4 weeks, then restart baby aspirin.
Continue Ancef 2 gm IV q8 hrs x6 weeks with home infusion
Prescriptions:
New
aspirin 325 mg Tablet
325 mg PO DAILY 28 Days Qty: 28 0RF
cefazolin 10 gram Recon Soln
2 g IV Q8H Qty: 10 0RF
oxycodone 5 mg Tablet
5 mg PO Q4HPRN PRN (Reason: moderate pain) Qty: 10 0RF
Continued
levothyroxine 25 mcg Tablet
25 mcg PO DAILY
rosuvastatin 10 mg Tablet
10 mg PO HS
tramadol 50 mg Tablet
50 mg PO PRN PRN (Reason: pain)
meloxicam 7.5 mg Tablet
7.5 - 15 mg PO PRN PRN (Reason: pain)
fluoxetine [Prozac] 10 mg Capsule
10 mg PO DAILY
metoprolol succinate 25 mg Tablet Extended Release 24 Hr
25 mg PO DAILY
multivitamin Tablet
1 tab PO DAILY
mupirocin 2 % Ointment
1 applic TOPICAL BID
Patient Comments:
patient started 3 days ago12/19
Held
aspirin 81 mg Capsule
81 mg PO BID
Hold Instructions: Resume on 01/22/24. hold while on full dose aspirin
Discontinued
Keflex
1 PO QID
Patient Comments:
patient and patients not sure of dosage
doxycycline hyclate
1 PO BID
Discharge Orders:
Discharge Patient (As Directed); Ordered 12/25/23
Ordered By: Earlene Adams
Discharge Date and Time
Print Language: NEPALI
[2023-12-25 14:50] VITALS: BP 124/79
== END 2023-12-25 16:01 | disposition home health service (06) | DRG 467 ==
LOC: 2 SOUTH 06:28
PROVIDERS: Physician Assistant; ADMITTING PHYSICIAN Orthopaedic Surgery; ATTENDING PHYSICIAN Internal Medicine; CONSULT PHYSICIAN Student in an Organized Health Care Education/Training Program
PROC: 0SPB0JZ Removal of Synthetic Substitute from Left Hip Joint, Open Approach (ICD-10-PCS; 2023-12-23)
PROC: 0SRB049 Replacement of Left Hip Joint with Ceramic on Polyethylene Synthetic Substitute, Cemented, Open Approach (ICD-10-PCS; 2023-12-23)
DX: T84.52XA Infection and inflammatory reaction due to internal left hip prosthesis, initial encounter (principal); D62 Acute posthemorrhagic anemia; I50.22 Chronic systolic (congestive) heart failure; K74.60 Unspecified cirrhosis of liver; Y83.1 Surgical operation with implant of artificial internal device as the cause of abnormal reaction of the patient, or of later complication, without mention of misadventure at the time of the procedure; I11.0 Hypertensive heart disease with heart failure; E11.9 Type 2 diabetes mellitus without complications; E03.9 Hypothyroidism, unspecified; B95.61 Methicillin susceptible Staphylococcus aureus infection as the cause of diseases classified elsewhere; M16.12 Unilateral primary osteoarthritis, left hip; Z79.82 Long term (current) use of aspirin; Z96.652 Presence of left artificial knee joint
CPT/HCPCS: 71045; 73502; 80053; 80200; 80202; 82248; 82962; 85025; 85610; 85652; 86140; 86850; 86900; 86901; 87070; 87147; 87176; 87186; 87205; 93971; 97116; 97162; 97167; C1713; C1776

== ENCOUNTER → 2024-05-13 11:16 | Outpatient (REF) | payer MEDICARE, OTHER, SELFPAY ==
[2024-05-13 12:01] LABS: % Eosinophils 3.1 % (0-6); % Immature Granulocytes 0.2 % (0-0.5); % Lymphocytes 22.3 % (20.5-51.1); % Monocytes 11.5 % (1.7-9.3); % Neutrophils 61.9 % (42.2-75.2); Absolute Eosinophils 0.1 10^3/uL (0-0.7); Absolute Lymphocytes 0.9 10^3/uL (1.2-3.4); Absolute Monocytes 0.5 10^3/uL (0.1-0.6); Absolute Neutrophils 2.6 10^3/uL (1.4-6.5); Hematocrit 38.7 % (37.0-47.0); Hemoglobin 13.1 g/dL (12.0-16.0); Mean Corp Hgb Conc. 33.9 g/dL (33.0-37.0); Mean Corpuscular Volume 94.4 fL (81.0-99.0); Mean Platelet Volume 9.7 fL (7.4-10.4); Nucleated Red Blood Cells % 0 %; Platelet Count 107 10^3/uL (130-400); Red Cell Dist. Width 15.8 % (11.5-14.5); White Blood Cell Count 4.2 10^3/uL (4.8-10.8)
[2024-05-13 12:12] LABS: Erythrocyte Sed Rate 32 mm/hour (0-20)
[2024-05-13 12:33] LABS: Blood Urea Nitrogen 19 mg/dl (7-17); Calcium 9.5 mg/dl (8.4-10.2); Carbon Dioxide 24 mmol/L (22-30); Chloride 104 mmol/L (98-107); Glucose 140 mg/dl (70-99); Potassium 4.6 mmol/L (3.5-5.1); Sodium 143 mmol/L (135-145); eGFR > 60.00
[2024-05-13 12:38] LABS: C-Reactive Protein < 5.00 mg/L (0.0-10.00)
== END ==
LOC: REG 11:16
PROVIDERS: ATTENDING PHYSICIAN Student in an Organized Health Care Education/Training Program; FAMILY PHYSICIAN Internal Medicine
DX: T84.50XS Infection and inflammatory reaction due to unspecified internal joint prosthesis, sequela (principal); E11.9 Type 2 diabetes mellitus without complications
CPT/HCPCS: 36415; 80048; 85025; 85652; 86140

== ENCOUNTER → 2024-06-14 13:51 | Outpatient (REF) | payer MEDICARE, OTHER, SELFPAY | LOC: WDC 13:51 | PROVIDERS: ATTENDING PHYSICIAN Internal Medicine | DX: Z12.31 Encounter for screening mammogram for malignant neoplasm of breast (principal) | CPT/HCPCS: 77063; 77067 ==

== ENCOUNTER → 2024-10-31 11:03 | Outpatient (REF) | payer MEDICARE, OTHER, SELFPAY | LOC: RCS 11:03 | PROVIDERS: ATTENDING PHYSICIAN Nurse Practitioner Gerontology; FAMILY PHYSICIAN Internal Medicine | DX: I42.0 Dilated cardiomyopathy (principal) | CPT/HCPCS: 93306 ==

== ENCOUNTER → 2025-06-21 10:22 | Outpatient (REF) | payer MEDICARE, OTHER, SELFPAY | LOC: HWWDC 10:22 | PROVIDERS: ATTENDING PHYSICIAN Obstetrics & Gynecology Gynecology; FAMILY PHYSICIAN Internal Medicine | DX: Z12.31 Encounter for screening mammogram for malignant neoplasm of breast (principal) | CPT/HCPCS: 77063; 77067 ==

== ENCOUNTER → 2025-06-27 10:27 | Outpatient (REF) | payer MEDICARE, OTHER, SELFPAY | LOC: WDC 10:27 | PROVIDERS: ATTENDING PHYSICIAN Obstetrics & Gynecology Gynecology; FAMILY PHYSICIAN Internal Medicine | DX: R92.8 Other abnormal and inconclusive findings on diagnostic imaging of breast (principal) | CPT/HCPCS: 76642 ==